=== PATIENT | male | born 1945 | race Caucasian/White ===

== ENCOUNTER 2019-03-14 06:52 | Inpatient (IN) | payer OTHER ==
[~2019-03-14] VITALS: Ht 190.5 cm; Wt 118.0 kg
[2019-03-14] MEDS ORDERED: IODIXANOL 320MG/ML 100 ML BOTTLE IV ONE (07:27)
[2019-03-14] MEDS ORDERED: ASPIRIN/SOD BICARB/CITRIC ACID 324MG TAB EFF ONE (07:27)
[2019-03-14] MEDS ORDERED: LIDOCAINE HCL 1% 20ML VIAL (Pyxis) INJ ONE (07:27)
[2019-03-14] MEDS ORDERED: METF-815 MT (07:50)
[2019-03-14] MEDS ORDERED: DILT60TA3 MT (07:50)
[2019-03-14] MEDS ORDERED: GABA-531 MT ×3 (07:50→20:34)
[2019-03-14] MEDS ORDERED: GLUC-221 PO (07:50)
[2019-03-14] MEDS ORDERED: SIMV20TA6 MT (07:50)
[2019-03-14] MEDS ORDERED: ASPI-1159 MT (07:50)
[2019-03-14] MEDS ORDERED: MIDAZOLAM HCL 2 MG/2 ML VIAL ONE (08:22)
[2019-03-14] MEDS ORDERED: FENTANYL CITRATE/PF 50MCG/ML 2ML VIAL ONE (08:23)
[2019-03-14] MEDS ORDERED: NICARDIPINE 100MCG/ML 10ML VIAL (CATH LAB) IV ONE (10:00)
[2019-03-14] MEDS ORDERED: NITROGLYCERIN 50MCG/ML 10ML VIAL (CATH LAB) IV ONE (10:00)
[2019-03-14] MEDS ORDERED: MORPHINE SULFATE 4 MG/ML CPJ (NOT FOR IM USE) IV PRN (10:00)
[2019-03-14] MEDS ORDERED: ONDANSETRON HCL 4MG/2ML INJ IV PRN (10:00)
[2019-03-14] MEDS ORDERED: HEPARIN SODIUM 1,000 UNIT/1ML VIAL IV ONE (10:00)
[2019-03-14] MEDS ORDERED: ATROPINE SULFATE 1MG/10ML SYR IV PRN (10:00)
[2019-03-14] MEDS ORDERED: ACETAMINOPHEN 325MG TABLET PO PRN (10:00)
[2019-03-14] MEDS ORDERED: ATROPINE SULFATE 1MG/10ML SYR ONE (15:48)
[2019-03-14] MEDS ORDERED: DEXTROSE 50% WATER 50ML SYRINGE IV PRN (17:00)
[2019-03-14] MEDS ORDERED: SODIUM CHLORIDE 0.9% 1,000 ML IV SCH (18:00)
[2019-03-14 19:42] VITALS: BP 126/83
[2019-03-14] MEDS ORDERED: POLY17PO3 MT (19:49)
[2019-03-14 20:00] VITALS: BP 126/83
[2019-03-14] MEDS: BLOOD SUGAR DIAGNOSTIC STRIP TEST SCH (20:55)
[2019-03-14] MEDS: INSULIN LISPRO 100 UNITS/ML SUBCUT SCH (21:00)
[2019-03-14] MEDS ORDERED: MEDICATION NOT ON FORMULARY EA (Gabapentin 2 CAP) MT SCH (21:00)
[2019-03-14] MEDS ORDERED: GABAPENTIN 300MG CAPSULE PO SCH ×2 (21:00→22:00)
[2019-03-14] MEDS: SODIUM CHLORIDE 0.45% 1,000 ML IV SCH (21:23)
[2019-03-14 22:00] VITALS: BP 138/68
[2019-03-15] VITALS (7 sets, daily range): BP systolic 120–159; BP diastolic 68–89
[2019-03-15] MEDS: SODIUM CHLORIDE 0.45% 1,000 ML IV SCH (02:15)
[2019-03-15] MEDS: GABAPENTIN 300MG CAPSULE PO SCH ×2 (05:41→08:29)
[2019-03-15 06:22] LABS: BASOPHILS % 0.5 % (0.0-2.0); EOSINOPHILS % 1.4 % (0.0-5.0); HEMOGLOBIN. 14.5 g/dL (14.0-18.0); LYMPHOCYTES % 19.7 % (20.0-50.0); MEAN CORPUSCULAR HEMOGLOBIN 32.9 pg (28.0-32.0); MEAN CORPUSCULAR VOLUME 95.2 fL (80.0-94.0); MEAN PLATELET VOLUME 8.4 fl (7.4-10.4); MONOCYTES % 6.7 % (2.0-8.0); NEUTROPHILS % 71.7 % (40.0-76.0); PLATELET 263 x1000/uL (130-400); RED BLOOD CELL COUNT 4.41 mill/uL (4.7-6.1); RED CELL DISTRIBUTION WIDTH 13.8 % (11.6-14.6)
[2019-03-15] MEDS: BLOOD SUGAR DIAGNOSTIC STRIP TEST SCH (06:28)
[2019-03-15] MEDS: INSULIN LISPRO 100 UNITS/ML SUBCUT SCH (06:28)
[2019-03-15 06:51] LABS: CHLORIDE 108 mEq/L (98-107)
[2019-03-15] MEDS ORDERED: ASPIRIN 81MG EC TABLET PO SCH (09:00)
[2019-03-15] MEDS ORDERED: GABAPENTIN 300MG CAPSULE PO SCH (12:00)
== END 2019-03-15 10:20 | disposition home or self-care (01) | DRG 287 ==
LOC: CCL 06:52 → 3WST 19:20
PROVIDERS: ADMIT Specialist; ATTEND Specialist
PROC: 4A023N8 Measurement of Cardiac Sampling and Pressure, Bilateral, Percutaneous Approach (ICD-10-PCS; principal; 2019-03-14)
PROC: B2111ZZ Fluoroscopy of Multiple Coronary Arteries using Low Osmolar Contrast (ICD-10-PCS; 2019-03-14)
DX: I35.0 Nonrheumatic aortic (valve) stenosis (principal); E11.42 Type 2 diabetes mellitus with diabetic polyneuropathy; R55 Syncope and collapse; M79.81 Nontraumatic hematoma of soft tissue
CPT/HCPCS: 36415; 76857; 80048; 82962; 93005; 93460; C1760; C1769; C1893; J0461; J1644; J2250; J3010; J3490; J7042; Q9967

== ENCOUNTER → 2019-03-22 | Outpatient (CLI) | payer OTHER ==
[~2019-03-22] MED LIST: ASPI-1159 MT; DILT60TA3 MT; GABA-531 MT; GLUC-221 PO; METF-815 MT; POLY17PO3 MT; SIMV20TA6 MT
== END | disposition home or self-care (01) ==
LOC: US 14:15
PROVIDERS: ATTEND Specialist
DX: M79.81 Nontraumatic hematoma of soft tissue (principal)
CPT/HCPCS: 93970